=== PATIENT | male | born 1995 | race Caucasian/White ===

== ENCOUNTER 2018-07-15 13:44 | Emergency (ER) | payer OTHER ==
[2018-07-15] MEDS ORDERED: Lidocaine 1% 20 ML MDV ONE (14:07)
== END 2018-07-15 14:27 | disposition home or self-care (01) ==
LOC: SCSER 13:44
DX: L02.212 Cutaneous abscess of back [any part, except buttock and flank] (principal)
CPT/HCPCS: 10061; J2001

== ENCOUNTER 2018-07-18 12:53 | Emergency (ER) | payer OTHER, SELFPAY | END 2018-07-18 13:28 | disposition home or self-care (01) | LOC: SCSER 12:53 | DX: Z48.817 Encounter for surgical aftercare following surgery on the skin and subcutaneous tissue (principal) | CPT/HCPCS: 99282 ==